=== PATIENT | male | born 1935 | race Caucasian/White ===

== ENCOUNTER → 2016-10-19 | Outpatient (CLI) | payer MEDICARE, OTHER | END | disposition home or self-care (01) | LOC: PCVCCLINIC 13:46 | PROVIDERS: ATTEND Internal Medicine | DX: I48.0 Paroxysmal atrial fibrillation (principal); I10 Essential (primary) hypertension; E78.00 Pure hypercholesterolemia, unspecified; E11.9 Type 2 diabetes mellitus without complications | CPT/HCPCS: 80061; 93005; G0463 ==

== ENCOUNTER → 2017-04-20 | Outpatient (CLI) | payer MEDICARE, OTHER | END | disposition home or self-care (01) | LOC: PCVCCLINIC 14:00 | PROVIDERS: ATTEND Internal Medicine | DX: I10 Essential (primary) hypertension (principal); I48.0 Paroxysmal atrial fibrillation; E78.5 Hyperlipidemia, unspecified; E10.9 Type 1 diabetes mellitus without complications; R00.1 Bradycardia, unspecified; Z87.891 Personal history of nicotine dependence; Z79.899 Other long term (current) drug therapy; Z79.84 Long term (current) use of oral hypoglycemic drugs | CPT/HCPCS: 80061; 93005; G0463 ==

== ENCOUNTER → 2017-10-19 | Outpatient (CLI) | payer MEDICARE, OTHER | END | disposition home or self-care (01) | LOC: PCVCCLINIC 11:42 | DX: I48.0 Paroxysmal atrial fibrillation (principal); E10.9 Type 1 diabetes mellitus without complications; I10 Essential (primary) hypertension; E78.5 Hyperlipidemia, unspecified; R94.31 Abnormal electrocardiogram [ECG] [EKG]; Z87.891 Personal history of nicotine dependence; Z79.82 Long term (current) use of aspirin; Z79.899 Other long term (current) drug therapy | CPT/HCPCS: 80061; 93005; G0463 ==

== ENCOUNTER → 2018-04-25 | Outpatient (CLI) | payer MEDICARE, OTHER | END | disposition home or self-care (01) | LOC: PCVCCLINIC 13:13 | PROVIDERS: ATTEND Internal Medicine | DX: I48.0 Paroxysmal atrial fibrillation (principal); I11.0 Hypertensive heart disease with heart failure; I50.32 Chronic diastolic (congestive) heart failure; E78.5 Hyperlipidemia, unspecified; E10.9 Type 1 diabetes mellitus without complications; Z88.8 Allergy status to other drugs, medicaments and biological substances; Z79.899 Other long term (current) drug therapy; Z79.82 Long term (current) use of aspirin; Z87.891 Personal history of nicotine dependence | CPT/HCPCS: 36415; 80061; 93005; G0463 ==

== ENCOUNTER → 2018-10-24 | Outpatient (CLI) | payer MEDICARE, OTHER ==
[~2018-10-24] MED LIST: REGADENOSON 0.4 MG/5 ML DISP.SYRIN. IV ONE
--- NOTE | 2018-10-24 12:05 | PCVCIMAG ---
APPROVED REPORT Study performed: 10/24/2018 09:40:54 EXAM: Comprehensive 2D, Doppler, and color-flow Echocardiogram Patient Location: Echo lab Status: routine BSA: 2.17 HR: 62 bpmBP: 190/90 mmHg Rhythm: NSR Other Information Study Quality: Adequate Risk Factors: Cardiac Risk Factors: HTN, Hyperlipidemia, DM Indications Hypertension/HDD Paroxysmal atrial fib. 2D Dimensions IVSd: 18.05 (7-11mm)LVOT Diam: 23.32 (18-24mm) LVDd: 32.81 mm PWd: 15.37 (7-11mm)Ascending Ao: 40.69 (22-36mm) LVDs: 27.92 (25-40mm) Left Atrium: 49.28 (27-40mm) Aortic Root: 36.21 mm LV Single Plane 4CH: 73.28 % Volumes Left Atrial Volume (Systole) Single Plane 4CH: 61.84 mLSingle Plane 2CH: 81.59 mL LA ESV Index: 34.00 mL/m2 Aortic Valve AoV Peak Miguel Angel.: 1.92 m/s AO Peak Gr.: 14.75 mmHgLVOT Max P.86 mmHg LVOT Max V: 1.21 m/s PAM Vmax: 2.69 cm2 Mitral Valve E/A Ratio: 0.7 MV Decel. Time: 306.69 ms MV E Max Miguel Angel.: 0.74 m/s MV A Miguel Angel.: 1.04 m/s IVRT: 176.47 ms TDI E/Lateral E': 14.80E/Medial E': 74.00 Medial E' Miguel Angel.: 0.01 m/s Lateral E' Miguel Angel.: 0.05 m/s Pulmonary Valve PV Peak Gr.: 3.87 mmHg Pulmonary Vein P Vein S: 0.54 m/sP Vein A: 0.41 m/s P Vein D: 0.44 m/sP Vein A Dur.: 114.2 msec P Vein S/D Ratio: 1.23 Tricuspid Valve TR Peak Miguel Angel.: 2.77 m/s TR Peak Gr.: 30.63 mmHg Left Ventricle The left ventricle is normal size. There is normal LV segmental wall motion. Moderate concentric left ventricular hypertrophy. Left ventricular systolic function is normal. The left ventricular ejection fraction is within the normal range. LVEF is 60-65%. Mild diastolic dysfunction is present (impaired relaxation pattern). Right Ventricle The right ventricle is normal size. The right ventricular systolic function is normal. Atria Left atrium is mildly dilated. The right atrium size is normal. Aortic Valve The aortic valve is normal in structure. No aortic regurgitation is present. There is no aortic valvular stenosis. Mitral Valve The mitral valve is normal in structure. Trace to mild mitral regurgitation. No evidence of mitral valve stenosis. Tricuspid Valve The tricuspid valve is normal in structure. Trace tricuspid regurgitation. Pulmonary artery pressure is 38mmHg. Pulmonic Valve The pulmonary valve is normal in structure. There is no pulmonic valvular regurgitation. Great Vessels The aortic root is normal in size. The ascending aorta is mildly dilated (4.1cm). IVC is normal in size and collapses >50% with inspiration. Pericardium There is no pericardial effusion. <Conclusion> Left ventricular systolic function is normal. There is normal LV segmental wall motion. LVEF 60-65%. Mild diastolic dysfunction. Left atrium is mildly dilated. The aortic valve is normal in structure. No aortic regurgitation or stenosis The mitral valve is normal in structure. Trace to mild mitral regurgitation. Trace tricuspid regurgitation. Pulmonary artery pressure is 38mmHg. The ascending aorta is mildly dilated (4.1cm). There is no pericardial effusion.
--- NOTE | 2018-10-24 15:25 | PCVCIMAG ---
APPROVED REPORT Imaging Protocol: Rest Tc-99m/Stress Tc-99m 1 day Study performed: 10/24/2018 11:18:52 Indication: Abnormal EKG, Dyspnea, Atrial Fibrillation Patient Location: Out-Patient Stress Nurse: Damari Cole RN, Mercedez Dao RN MI Tech:FELICIA EllsworthMT Ht: 5 ft 10 in Wt: 220 lbs BSA: 2.17 m2 HR: 70 bpm BP: 210/90 mmHg BMI: 31.5 Rhythm: Sinus Rhythm, 1st degree AV block, LVH Medical History Medical History: HTN, Hyperlipidemia, Diabetic Noninsulin, Former Smoker, Atrial Fibrillation Medications: Norvasc, ASA, Lipitor, Flecainide, Levemir, Metformin, Benicar, Torsemide, Metoprolol Allergies: Maurice Inhibitors, Cardizem, Niacin Cardiac Risk Factors: Age Pretest Chest Pain Characteristics: No chest pain Exercise History: Sedentary Meds Held (24 hrs): Metoprolol Resting Data Rest SPECT myocardial perfusion imaging was performed in supine position 45 minutes following the intravenous injection of 10.5 mCi of Tc-99m Sestamibi. Time of rest injection: 1020 Date: 10/24/2018 Administration Route: IV Pharmacologic Stress Pharmacologic stress test was performed by injecting Regadenoson 0.4 mg IV push over 10-15 seconds immediately followed by the intravenous injection of 32.5 mCi of Tc-99m Sestamibi. Time of stress injection: 1200 Administration Route: IV Gated Stress SPECT was performed 45 minutes after stress injection. The images were gated to evaluate regional wall motion and calculate left ventricular ejection fraction. Stress Test Details Stress Test: Pharmacologic stress testing performed using 0.4 mg of regadenoson per 5 mL given IV over 10 seconds. Reason for pharmacologic stress test: physical limitation. HRMax Heart Rate (APMHR): 139 bpm Resting HR: 70 bpmTarget HR (85% APMHR): 118 bpm Max HR Achieved: 83 bpm % of APMHR: 59 Recovery HR: 75 bpm BP Resting BP: 210/90 mmHg Max BP: 196/90 mmHg Recovery BP: 170/84 mmHg ECG Resting ECG: Sinus Rhythm, 1st degree AV block, LVH Stress ECG: Sinus Rhythm, 1st degree AV block, LVH ST Change: None Maximum ST Deviation: 0 mm Arrhythmia: None Recovery ECG: Sinus Rhythm, 1st degree AV block, LVH Recovery ST Change: None Recovery ST Deviation: 0 mm Recovery Arrhythmia: None Clinical Reason for Termination: Completed protocol Stress Symptoms: Dyspnea Exercise duration: 0 min 55 sec Symptoms resolved during recovery. Stress ECG Conclusion ECG: Non-ischemic Clinical: Non-ischemic Study Quality Study: Good Study Data Post stress, the left ventricular ejection was 60%.. SSS: 0 SRS: 1 SDS: 0 TID = 1.05. Perfusion No evidence of stress induced ischemia or prior myocardial infarction. Wall Motion Normal left ventricular size and function with no regional wall motion abnormalities. Nuclear Conclusion No evidence of stress induced ischemia or prior myocardial infarction. Normal left ventricular size and function with no regional wall motion abnormalities. Post stress, the left ventricular ejection was 60%. No change since prior study dated March 2016. Interpreted by: Liang Funes MD Electronically Approved: 10/24/2018 14:39:45 <Conclusion> ECG: Non-ischemic Clinical: Non-ischemic
== END | disposition home or self-care (01) ==
LOC: PCVCIMAG 09:17
PROVIDERS: ATTEND Internal Medicine
DX: I34.0 Nonrheumatic mitral (valve) insufficiency (principal); I48.0 Paroxysmal atrial fibrillation; I11.0 Hypertensive heart disease with heart failure; I50.32 Chronic diastolic (congestive) heart failure; E78.5 Hyperlipidemia, unspecified; E10.9 Type 1 diabetes mellitus without complications; R94.31 Abnormal electrocardiogram [ECG] [EKG]; E78.00 Pure hypercholesterolemia, unspecified; Z88.8 Allergy status to other drugs, medicaments and biological substances; Z87.891 Personal history of nicotine dependence; Z79.899 Other long term (current) drug therapy
CPT/HCPCS: 78452; 93017; 93306; A9500; J2785; 36415; 80061; 93005; 93280; G0463

== ENCOUNTER → 2019-04-25 | Outpatient (CLI) | payer MEDICARE, OTHER | END | disposition home or self-care (01) | LOC: PCVCCLINIC 13:55 | PROVIDERS: ATTEND Internal Medicine | DX: I48.0 Paroxysmal atrial fibrillation (principal); I11.0 Hypertensive heart disease with heart failure; I50.32 Chronic diastolic (congestive) heart failure; E10.9 Type 1 diabetes mellitus without complications; E78.5 Hyperlipidemia, unspecified; R94.31 Abnormal electrocardiogram [ECG] [EKG]; Z79.82 Long term (current) use of aspirin; Z79.899 Other long term (current) drug therapy; Z87.891 Personal history of nicotine dependence; Z79.84 Long term (current) use of oral hypoglycemic drugs; Z88.8 Allergy status to other drugs, medicaments and biological substances | CPT/HCPCS: 36415; 80061; 93005; G0463 ==